=== PATIENT | female | born 1935 | race Caucasian/White ===

== ENCOUNTER → 2023-08-25 | Outpatient (CLI) | payer MEDICARE ==
--- NOTE | 2023-08-26 03:09 | US ---
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 No nephrolithiasis is seen. No solid masses are identified. Simple right renal upper pole cyst identified. Cortical medullary differentia tion is maintained bilaterally. The urinary bladder is anechoic. Bilateral ureteral jets are seen. IMPRESSION: Limited examination due to overlying bowel gas. 1. No ultrasound evidence for an acute process. 2. Simple right renal cyst.
== END | disposition home or self-care (01) ==
LOC: RADUSWWP 14:37
PROVIDERS: ATTEND Urology
DX: N28.1 Cyst of kidney, acquired (principal)
CPT/HCPCS: 76770